=== PATIENT | female | born 1970 | race Caucasian/White ===

== ENCOUNTER → 2016-10-18 12:22 | Outpatient (CLI) | payer OTHER ==
--- NOTE | 2016-10-18 13:56 | NUR ---
Nutrition education for bariatric surgery (Gastric Sleeve): S: Pt reports baving a Lap Band 5 years ago. Pt's wt was 253#; pt ending wt was 179#. Due to continued problems with the lap band, pt has slowly increased back to 225#. Pt is now in the process for getting the lap band removed. Pt reports she is having a problem with sugary foods and drinks. Pt states she can not seem to stop herself from eating/drinking them which she knows has contributed to her weight gain. 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 Pt has a high stress job. Pts goal weight is 175#. O: Dx: Obesity Ht: 5'5" Wt: 225# IBW: 125# +/-10% BMI: 37.4 A: Pt is already having to restrict some foods due to lap band. Pt also knows about label reading and portion control. Pt, however, has given in to her sugar cravings which has lead to her continued weight gain. Pt seems ready to make the necessary changes needed to be successful with a gastric sleeve. Pt aslo has a very reasonable goal weight which she should be able to meet and maintain long-term. P: Reviewed preprocedure dietary control; clear liquid/full liquid/puree/soft/regular diet progression. Reviewed sample menus; discussed liquids between meals; 1/2 cup meal size; dumping syndrome; no straws or carbonated drinks; protein supplements; multivitamins; pouch stretching. Provided written diet material and RDN name and phone number. Pt with reasonable weight expectations and pt appears willing to do what is necessary for long-term success. RDN will be available if needed. Thank you for the consult.
== END | disposition home or self-care (01) ==
LOC: D.FANS 12:22
DX: Z01.818 Encounter for other preprocedural examination (principal)

== ENCOUNTER 2017-01-17 06:38 | Day surgery (SDC) | payer OTHER ==
[2017-01-16 15:10] LABS: HEMATOCRIT 41.6 % (36.0-48.0); HEMOGLOBIN 13.6 g/dL (12-16); MCH 31.1 pg (26.0-34.0); MCHC 32.7 g/dL (31.0-37.0); MCV 95.2 fL (80.0-100.0); MEAN PLATELET VOLUME 10.2 fL (7.4-10.4); RBC 4.37 10x6/uL (4.00-5.40); RDW 13.6 % (11.5-14.5); WBC 6.1 10x3/uL (4.8-10.8)
[~2017-01-17] VITALS: Ht 165.1 cm; Wt 104.3 kg
[~2017-01-17 06:38] MED LIST: MULTIPLE VITAMI1 TA1 PO; VIVELLE-DO1 PATCH.B1 TD
[2017-01-17 06:39] VITALS: BP 110/64; Ht 165.1 cm; Wt 104.3 kg
[2017-01-17] MEDS ORDERED: PERCOCET 5-3251 TAB PO (09:42)
--- NOTE | 2017-01-17 10:26 | NUR ---
1015-RECD TO ROOM FROM PACU. TRANSFERS SELF TO BED, USES PILLOW TO SPLINT ABD. RESP WITH EASE. RATES PAIN AT 6. STATES NAUSEA IS IMPROVING. ABD INCISIONS X 4 WITH STERI STRIPS, LEFT ABD STERI STRIPS WITH SCANT DRAINAGE, OTHERS DRY AND INTACT. TAKING ICE CHIPS WITHOUT NAUSEA.
--- NOTE | 2017-01-17 10:59 | NUR ---
1047--PT COMPLAINS OF PAIN, RATES PAIN 03/17. PERCOCET 5/325MG TAB 1X GIVEN PO FOR PAIN, WILL CONTINUE TO MONITOR. GARRETT LEE
--- NOTE | 2017-01-17 15:21 | NUR ---
1145--PT STATES PAIN IS BETTER, VOIDS WITHOUT DIFFICULTY. IV DC'D GARRETT LEE 1156--DISCHARGE INSTRUCTIONS GIVEN, PT VERBALIZES UNDERSTANDING. PT OFF UNIT VIA WC. GARRETT LEE
--- NOTE | 2017-01-17 21:50 | OP ---
PATIENT NAME: JESSY MUHAMMAD MEDICAL RECORD: [id number] :66 LOCATION:D.OPS ADMISSION DATE: SURGEON: IRAIDA VARGAS MD DATE OF OPERATION: 01/17/2017 SURGEON: Iraida Vargas MD PREOPERATIVE DIAGNOSES: 1. Morbid obesity to BMI 36.9. 2. History of laparoscopic adjustable gastric banding. 3. Dysphagia. POSTOPERATIVE DIAGNOSES: 1. Morbid obesity to BMI 36.9. 2. History of laparoscopic adjustable gastric banding. 3. Dysphagia. PROCEDURE PERFORMED: Laparoscopic gastric band removal. ANESTHESIA: General. COMPLICATIONS: None. SPECIMENS: Gastric band. ESTIMATED BLOOD LOSS: 20 cc. Case was clean. OPERATIVE COURSE: After consent was obtained, the patient was taken to the operating room and placed in supine position on the operating table. Next, general anesthesia was given via endotracheal intubation. After a timeout was taken to confirm the correct patient and procedure, the abdomen was then prepped and draped in typical sterile fashion. Local anesthetic was injected just above the umbilicus. A stab incision was made with 11-blade scalpel using a 5-mm bladeless optical trocar. The abdomen was entered under direct laparoscopic vision. Adequate pneumoperitoneum was achieved. The abdominal cavity was inspected. No evidence of bowel injury. No evidence of bleeding. The patient was then placed in the steep reverse Trendelenburg position. Two additional trocars were then placed, two 5-mm trocars were placed in the right lateral quadrant. The Rohini liver retractor was placed in the subxiphoid position. The left lobe of the liver was elevated to expose the GE junction. At this time, a meticulous dissection was performed along the gastric band. The scar tissue was taken with a combination of electrocautery and Metzenbaum scissor dissection. Once the tract was opened, several sutures were identified along the cardia to the GE junction, which again were taken with sharp dissection. Once this was complete, the gastric band device was unlocked. The balloon was desufflated. The band was easily able to be pulled through the remaining portion of the posterior track. The band was placed into the left lateral quadrant. Dissection continued and anteriorly, making through the cardia, restoring the cardia to its normal anatomical position and dissect the cardia off the GE junction. Once this was complete, the area was copiously irrigated and suctioned. Adhesions were taken off the posterior liver edge and anterior surface of the stomach. Once there is normal anatomical alignment of the stomach, the area was again copiously irrigated and suctioned. There is no OPERATIVE REPORT [id number] JESSY MUHAMMAD evidence of bowel injury. No evidence of bleeding, no evidence of gastric injury. At this time, the Rohini liver retractor was removed. The abdomen was desufflated. All remaining instruments were removed. Trocars were removed. Local anesthetic was injected in the left upper quadrant, the previous incision. The incision was opened with a 15 blade scalpel. Dissection continued down the level of the external oblique fascia, at which time the subcutaneous port was identified. The subcutaneous port was meticulously dissected. Ethibond sutures were cut with sharp dissection. The subcutaneous port was removed from the external oblique fascia. The area was dissected circumferentially around the port of the catheter entry to the abdominal wall. Once dissected, the gastric band was removed and sent for permanent pathology. The fascia and peritoneum were then closed with 0 Prolene sutures. The wound was irrigated and suctioned. Subcutaneous tissue was closed with 3-0 Vicryl suture. Skin incisions were then closed with 4-0 Monocryl, Mastisol and Steri-Strips. At the end of the case, all needle counts were correct. No complications occurred. The patient was extubated and transferred to the PACU in stable condition. TRANSINT:[id number] Voice Confirmation ID: [id number] DOCUMENT ID: [id number] IRAIDA VARGAS MD at 2150 CC: [id number] DICTATION DATE: 01/17/17940 CHROME PLATER: 01/17/17 1622 [facility] 01/17/17 [id number] [place] [address]
== END 2017-01-17 11:55 | disposition home or self-care (01) ==
LOC: D.OPS 06:38 → D.PAN 07:30 → D.OPS 08:00 → D.PAN 08:30 → D.OPS 11:55
PROVIDERS: Anesthesiology
DX: R13.10 Dysphagia, unspecified (principal); E66.01 Morbid (severe) obesity due to excess calories; Z68.36 Body mass index [BMI] 36.0-36.9, adult; F17.200 Nicotine dependence, unspecified, uncomplicated

== ENCOUNTER 2017-04-23 06:45 | Day surgery (SDC) | payer OTHER ==
[~2017-04-23] VITALS: Ht 165.1 cm; Wt 99.8 kg
[~2017-04-23 06:45] MED LIST changes: +PERCOCET 5-3251 TAB PO
[2017-04-23 08:16] VITALS: BP 113/59; Ht 165.1 cm; Wt 99.8 kg
[2017-04-23 08:55] LABS: HEMATOCRIT 39.1 % (36.0-48.0); HEMOGLOBIN 12.8 g/dL (12-16); MCH 31.4 pg (26.0-34.0); MCHC 32.7 g/dL (31.0-37.0); MCV 96.1 fL (80.0-100.0); MEAN PLATELET VOLUME 10.1 fL (7.4-10.4); RBC 4.07 10x6/uL (4.00-5.40); RDW 13.7 % (11.5-14.5); WBC 6.7 10x3/uL (4.8-10.8)
--- NOTE | 2017-04-23 16:53 | NUR ---
1000 COFFEE AND WATER PROVIDED 1040 PIV DC'D W/CATHETER TIP INTACT 1045 PT DC W/ VIA AMBULATORY ESCORTED TO OP [facility]AVIL[facility] EXIT.
== END 2017-04-23 10:45 | disposition home or self-care (01) ==
LOC: D.OPS 06:45
PROVIDERS: Anesthesiology
DX: K44.9 Diaphragmatic hernia without obstruction or gangrene (principal); R13.10 Dysphagia, unspecified; K29.50 Unspecified chronic gastritis without bleeding; K20.9 Esophagitis, unspecified; E66.01 Morbid (severe) obesity due to excess calories; Z68.36 Body mass index [BMI] 36.0-36.9, adult; Z01.812 Encounter for preprocedural laboratory examination

== ENCOUNTER → 2017-04-24 08:53 | Outpatient (CLI) | payer OTHER ==
[2017-04-23 08:16] VITALS: BMI 36.6
== END | disposition home or self-care (01) ==
LOC: D.RAD 08:53
DX: E66.01 Morbid (severe) obesity due to excess calories (principal)